=== PATIENT | female | born 1970 | race Caucasian/White ===

== ENCOUNTER 2019-05-06 19:35 | Inpatient (IN) ==
--- NOTE | 2019-05-06 19:44 | DR.GENAD ---
HPI Time Seen Time Seen by Provider: 05/06/19 19:44 HPI Comment HPI Comment: Patient is a 49-year-old female who presents to the ED with intergluteal abscess. She states that it started approximately on Monday of last week. She went to her PCP on Monday and was direct admitted to [facility]. But decided to come to call my ED for unknown reasons patient states that abscess is in between her right intergluteal area and is extremely painful. It is draining purulent drainage she has had subjective fevers. She also states that the pain is unbearable and that it is extremely hard to sit. She complains of multiple allergies including possible vancomycin to me. PMH PMH Past Medical History: Anxiety, Asthma, Diabetes, Hypertension and Hypothyroidism Past Surgical History: Yes Surgical History: Cholecystectomy Family History Family Medical History: [place] and Heart Failure Social History Do you use any recreational Drugs:: No infectious screening Isolation: Standard ROS Review of Systems Constitutional: Fever and Weakness Eyes: No Symptoms Reported ENTM: No Symptoms Reported Respiratoy: No Symptoms Reported Cardiovascular: No Symptoms Reported Gastrointestinal/Abdominal: No Symptoms Reported Genitourinary: Other (abscess in interguteal fold) Neurological: No Symptoms Reported Musculoskeletal: No Symptoms Reported and Other (buttock pain) Integumentary: Lumps Hematologic/Lymphatic: No Symptoms Reported Endocrine: No Symptoms Reported Psychiatric: No Symptoms Reported All Other Systems: Reviewed and Negative PE Vital Signs Vitals: Temperature 98.5 F Pulse Rate [Left Brachial] 66 Pulse Rate 100 Respiratory Rate 20 Blood Pressure [Right Arm] 134/79 Blood Pressure 130/81 O2 Sat by Pulse Oximetry 97 General Limitations: No Limitations General Appearance: Anxious and In Distress Head Head Exam: Normal Inspection, Atraumatic and Normocephalic Eyes Eye exam: Normal Appearance and EOMI ENT ENT Exam: Normal Exam and Normal Oropharynx Nose Exam: Normal Nose Exam and Sinus Tenderness Mouth Exam: Normal Inspection and Drooling Throat Exam: Normal Inspection Neck Neck Exam: Normal Inspection and Full ROM Respiratory Respiratory Exam: Normal Lung Sounds Bilat Respiratory Exam: Bilateral: Clear to Auscultation Cardiovascular Cardiovascular Exam: Regular Rate and Normal Rhythm Abdominal Exam Abdominal Exam: Normal Inspection, Normal Bowel Sounds and Soft Extremities Extremities Exam: Normal Inspection, Full ROM and Other (macular/papulae) Neurologic Neurological Exam: Alert, Oriented X3, CN II-XII Intact and Normal Gait Psychiatric Psychiatric Exam: Normal Affect and Normal Mood Skin Skin Exam: Other (large hand sized abscess with purulent foul smelling drainage and several opening. it is very induration.) MDM Additional Information Additional Information Obtained From: Old Records Differential Diagnosis Differential Diagnosis: abscess COURSE Treatment Treatment: Patient has intergluteal abscess that appears to need surgical input and drainage. Case was discussed with . He stated that he will does evaluate patient in the ED and that to keep the patient n.p.o.. Reevaluation 1st: Worsened (20:00 pt in pain ) 2nd: Improved (22:00 pt is states she feels a little better ) 3rd: Worsened (6:00 care plan discussed with patient) Consultation Called: :55 Call Returned: :55 Consultation Comments: Discussed care plan with Dr. Shepherd he advised he will assess pt in ED and to keep patient NPO. No further imaging needed. Education/Counseling Education/Counseling: Patient, Family, Education and Counseling Educated On: Treatment, Diagnosis, Prognosis and Needs for Follow Up ROR Labs Reviewed Laboratory Results Reviewed?: Yes Result Diagrams: 05/06/19 23:10 05/06/19 23:10 Laboratory: WBC 10.0 X10^3/uL (3.6-10.0) 05/06/19 23:10 RBC 4.43 X10^6/uL (3.5-5.4) 05/06/19 23:10 Hgb 11.7 g/dL (12.0-16.0) L 05/06/19 23:10 Hct 35.5 % (36.0-47.0) L 05/06/19 23:10 MCV 80.1 fL (80.0-100.0) 05/06/19 23:10 MCH 26.3 pg (27.0-34.0) L 05/06/19 23:10 MCHC 32.9 g/dL (33.0-35.0) L 05/06/19 23:10 RDW 15.6 % (11.6-16.5) 05/06/19 23:10 Plt Count 255 X10^3/uL (150.0-450.0) 05/06/19 23:10 MPV 8.3 fL (7.4-11.0) 05/06/19 23:10 Neut % (Auto) 73.4 % (42.0-75.0) 05/06/19 23:10 Lymph % (Auto) 15.4 % (21.0-51.0) L 05/06/19 23:10 [place] % (Auto) 8.1 % (0.0-13.0) 05/06/19 23:10 Eos % (Auto) 2.0 % (0.9-2.9) 05/06/19 23:10 Baso % (Auto) 1.1 % (0.2-1.0) H 05/06/19 23:10 Neut # (Auto) 7.4 x10^3/uL (2.2-4.8) H 05/06/19 23:10 Lymph # (Auto) 1.5 X10^3/uL (1.3-2.9) 05/06/19 23:10 [place] # (Auto) 0.8 x10^3/uL (0.3-0.8) 05/06/19 23:10 Eos # (Auto) 0.2 x10^3/uL (0.0-0.2) 05/06/19 23:10 Baso # (Auto) 0.1 X10^3/uL (0.0-0.1) 05/06/19 23:10 Absolute Nucleated RBC 0.1 /100WBC 05/06/19 23:10 Sodium 135 mmol/L (136-145) L 05/06/19 23:10 Corrected Sodium 138 mmol/L (136-145) 05/06/19 23:10 Potassium 4.2 mmol/L (3.5-5.1) 05/06/19 23:10 Chloride 100 mmol/L (98-107) 05/06/19 23:10 Carbon Dioxide 27.2 mmol/L (21-32) 05/06/19 23:10 BUN 11 mg/dL (7-18) 05/06/19 23:10 Creatinine 0.92 mg/dL (0.55-1.02) 05/06/19 23:10 Est GFR (MDRD) Af Amer > 60 (>60) 05/06/19 23:10 Est GFR (MDRD) Non-Af > 60 (>60) 05/06/19 23:10 Glucose 233 mg/dL (65-99) H 05/06/19 23:10 Calcium 8.8 mg/dL (8.5-10.1) 05/06/19 23:10 Corrected Calcium 9.9 mg/dL (8.5-10.1) 05/06/19 23:10 Total Bilirubin 0.30 mg/dL (0.2-1.0) 05/06/19 23:10 AST 27 Units/L (15-37) 05/06/19 23:10 ALT 17 Units/L (12-78) 05/06/19 23:10 Alkaline Phosphatase 143 Units/L (46-116) H 05/06/19 23:10 Total Protein 6.8 g/dL (6.4-8.2) 05/06/19 23:10 Albumin 2.6 g/dL (3.4-5.0) L 05/06/19 23:10 Globulin 4.2 g/dL (2.5-4.5) 05/06/19 23:10 Albumin/Globulin Ratio 0.6 Ratio (1.1-2.1) L 05/06/19 23:10 Opioid Opioid Risk Tool Total: 0 Total Score Risk Category: Low Risk Copyright: [employer] INGRAM predicting aberrant behaviors Diagnosis Discharge Problem: Abscess and cellulitis of gluteal region Narrative Support Text: Admitted to Dr. Shepherd for surgery and further evaluation.
[2019-05-06] MEDS ORDERED: CLEOCIN 600 MG IV PREMIX 600 MG/50 ML BAG IV ONE (22:58)
[2019-05-06] MEDS ORDERED: CLEOCIN VIAL 600 MG ONE (23:01)
[2019-05-06] MEDS ORDERED: NS 100 ML IV 100 ML IV ONE (23:02)
[2019-05-06 23:20] LABS: BASOPHILS # (AUTO) 0.1 X10^3/uL (0.0-0.1); BASOPHILS % (AUTO) 1.1 % (0.2-1.0); EOSINOPHILS # (AUTO) 0.2 x10^3/uL (0.0-0.2); HEMATOCRIT 35.5 % (36.0-47.0); HEMOGLOBIN 11.7 g/dL (12.0-16.0); LYMPHOCYTES # (AUTO) 1.5 X10^3/uL (1.3-2.9); LYMPHOCYTES % (AUTO) 15.4 % (21.0-51.0); MEAN CORPUSCULAR HEMOGLOBIN 26.3 pg (27.0-34.0); MEAN CORPUSCULAR HGB CONC 32.9 g/dL (33.0-35.0); MEAN CORPUSCULAR VOLUME 80.1 fL (80.0-100.0); MEAN PLATELET VOLUME 8.3 fL (7.4-11.0); MONOCYTES # (AUTO) 0.8 x10^3/uL (0.3-0.8); MONOCYTES % (AUTO) 8.1 % (0.0-13.0); NEUTROPHILS # (AUTO) 7.4 x10^3/uL (2.2-4.8); NEUTROPHILS % (AUTO) 73.4 % (42.0-75.0); PLATELET COUNT 255 X10^3/uL (150.0-450.0); RED BLOOD COUNT 4.43 X10^6/uL (3.5-5.4); RED CELL DISTRIBUTION WIDTH 15.6 % (11.6-16.5)
[2019-05-06 23:30] LABS: ALANINE AMINOTRANSFERASE 17 Units/L (12-78); ALBUMIN 2.6 g/dL (3.4-5.0); ALKALINE PHOSPHATASE 143 Units/L (46-116); ASPARTATE AMINO TRANSFERASE 27 Units/L (15-37); BLOOD UREA NITROGEN 11 mg/dL (7-18); CALCIUM 8.8 mg/dL (8.5-10.1); CARBON DIOXIDE 27.2 mmol/L (21-32); CHLORIDE 100 mmol/L (98-107); COR CA(FOR HYPOALB) 9.9 mg/dL (8.5-10.1); COR NA(FOR HYPERGLY) 138 mmol/L (136-145); CREATININE 0.92 mg/dL (0.55-1.02); SODIUM 135 mmol/L (136-145); TOTAL PROTEIN 6.8 g/dL (6.4-8.2); eGFR NON BLACK RACES > 60 (>60)
[2019-05-07] MEDS ORDERED: ZOFRAN INJ 4 MG VIAL IVP ONE (00:21)
[2019-05-07] MEDS ORDERED: DEMEROL INJ IVP ONE ×2 (00:21→02:05)
[2019-05-07] MEDS ORDERED: ZOFRAN INJ 4 MG VIAL ONE (00:23)
[2019-05-07] MEDS ORDERED: DEMEROL INJ ONE ×2 (00:23→02:03)
[2019-05-07] MEDS ORDERED: DIPRIVAN VIAL 20 ML ONE (07:28)
[2019-05-07] MEDS ORDERED: VERSED ONE (07:28)
[2019-05-07] MEDS ORDERED: KETALAR ONE (08:45)
[2019-05-07] MEDS ORDERED: DILAUDID INJ ONE (08:49)
[2019-05-07] MEDS ORDERED: NS 1000 ML 1,000 ML ONE (08:50)
[2019-05-07] MEDS ORDERED: XYLOCAINE 1 % (PLAIN) ONE (08:53)
[2019-05-07] MEDS ORDERED: NS 1/2 1000 ML IV 1,000 ML IV ONE (10:48)
[2019-05-07] MEDS: CLEOCIN 600 MG IV PREMIX 600 MG/50 ML BAG IV SCH ×3 (11:04→21:08)
[2019-05-07] MEDS: NS 1/2 1000 ML IV 1,000 ML IV SCH (11:04)
[2019-05-07] MEDS ORDERED: VOLTAREN 1 % GEL MULTI DOSE TUBE TOP SCH (13:15)
[2019-05-07] MEDS: MICRO K EXTEN CAP 10 MEQ PO SCH (14:35)
[2019-05-07] MEDS: SYNTHROID 150 mcg TAB PO SCH (14:35)
[2019-05-07] MEDS: CYMBALTA PO SCH (14:35)
[2019-05-07] MEDS: DEMADEX PO SCH (14:36)
[2019-05-07] MEDS: FOLIC ACID TAB 1 MG PO SCH (14:36)
[2019-05-07] MEDS: NEURONTIN CAP 400 MG PO SCH (14:36)
[2019-05-07 14:46] VITALS: BMI 47.4
[2019-05-07] MEDS: PATIENT'S HOME MEDICATION (Methocarbamol 500 MG) PO SCH ×2 (17:07→20:19)
[2019-05-07] MEDS ORDERED: VOLTAREN 1 % GEL MULTI DOSE TUBE TOP PRN (17:09)
[2019-05-07] MEDS: HumuLIN R SUBCUT PRN ×2 (17:33→21:00)
--- NOTE | 2019-05-07 18:55 | DR.H&P ---
H&P - History & Physical for Day of: H&P Date: 05/07/19 - Chief Complaint Chief Complaint: RIGHT INTRAGLUTEAL ABSCESS - History of Present Illness History of Present Illness: IS A 49 YEAR OLD WHITE FEMALE WHO PRESENTED TO THE ER WITH COMPLAINTS OF A LARGE, PAINFUL ABSCESS TO THE RIGHT INTERGLUETEAL AREA. THERE IS PURULENT DRAINAGE NOTED FROM SITE. PATIENT ALSO REPORTS FEVER. SYMPTOMS STARTED APPROXIMATELY A WEEK AND A HALF AGO. ON ARRIVAL, VITALS WERE 98.5-100-20-98%-130/81. LABS WERE OBTAINED. ABNORMAL LAB VALUES INCLUDE THE FOLLOWING: HGB 11.7, HCT 35.5, SODIUM 135, GLUCOSE 233, ALK PHOS 143. ALBUMIN 2.6. WOULD CULTURE COLLECTED. CONSULTED WITH PATIENT IN THE ER. CONSCIOUS SEDATION WAS PERFORMED AND WOUND WAS DEBRIDED AND DRAINED. WOUND WAS PACKED WITH IODIFORM. SHE WAS ADMITTED TO THE HOSPITAL FOR FURTHER T REATMENT WITH IV ANTIBIOTICS. WE STARTED CLINDAMYCIN 600MG IV Q6H, 1/2NS AT 100ML/HR, AND DEMEROL 12.5MG IV Q4H PRN. OTHERWISE, WE PLAN TO FOLLOW UP WITH AM LABS AND CONTINUE TO MONITOR. - Past Medical History Past Medical History: Hypertension, Diabetes, Anxiety, Hypothyroidism, Asthma - Past Surgical History Surgical History: Appendectomy, Cholecystectomy - Family History Family Medical History: Diabetes Mellitus, Cancer, [place], Coronary Artery Disease, Heart Failure, Sudden Cardiac , Hypertension - Social History Does any household member use tobacco: No Alcohol Use: None Drug Use: None - Medications Home Medications: diphenhydramine [From Benadryl] Allergy (Verified 05/06/19 20:01) epinephrine Allergy (Verified 05/06/19 20:01) methylprednisolone [From Depo-Medrol] Allergy (Verified 05/06/19 20:01) morphine Allergy (Verified 05/06/19 20:01) CONTINUE taking the following medications aspirin [Aspir-81] 81 mg PO DAILY 05/07/19 [History] bisoprolol fumarate 5 mg PO HS 05/07/19 [History] clindamycin HCl [Cleocin HCl] 300 mg PO TID 05/07/19 [History] diclofenac sodium [Voltaren] 2 % TOPICAL BID 05/07/19 [History] duloxetine [Cymbalta] 30 mg PO HS 05/07/19 [History] duloxetine [Cymbalta] 60 mg PO DAILY 05/07/19 [History] folic acid 1 mg PO DAILY 05/07/19 [History] gabapentin [Neurontin] 800 mg PO DAILY 05/07/19 [History] insulin glargine [Basaglar KwikPen U-100 Insulin] 80 unit SUBCUT DAILY 05/07/19 [History] insulin lispro [Admelog SoloStar U-100 Insulin] 5 - 10 unit SUBCUT DAILY PRN 05/07/19 [History] levothyroxine 150 mcg PO DAILY 05/07/19 [History] liraglutide [Victoza 3-Geraldo] 1.8 mg SUBCUT HS 05/07/19 [History] losartan [Cozaar] 25 mg PO DAILY 05/07/19 [History] methocarbamol 500 mg PO BID 05/07/19 [History] methotrexate sodium 12.5 mg PO WEEKLY 05/07/19 [History] mupirocin 1 applic TOPICAL DAILY 05/07/19 [History] oxycodone [Roxicodone] 5 mg PO Q4H PRN 05/07/19 [History] potassium chloride [Klor-Con 10] 10 meq PO DAILY 05/07/19 [History] torsemide 20 mg PO DAILY 05/07/19 [History] verapamil 40 mg PO BID 05/07/19 [History] - Review of Systems Constitutional: Fever Eyes: No Symptoms Reported ENT: No Symptoms Reported Respiratory: No Symptoms Reported Cardiovascular: No Symptoms Reported Gastrointestinal: No Symptoms Reported Genitourinary: No Symptoms Reported Musculoskeletal: No Symptoms Reported Skin: See HPI, Wound Neurological: No Symptoms Reported - Physical Exam Vital Signs: Temperature 97.9 F Pulse Rate [Left Brachial] 69 Pulse Rate 67 Respiratory Rate 18 Blood Pressure [Left Arm] 105/56 Blood Pressure [Right Arm] 92/49 Blood Pressure 99/58 O2 Sat by Pulse Oximetry 95 Oriented: Normal Eyes: Normal Ear: Normal Nose: Normal Throat: Normal Respiratory: Clear Throughout Cardiovascular: Normal : Normal Auscultation: Bowel Sounds: Normal Palpation: Normal Tenderness: Normal Skin: Wound (RIGHT INTRAGLUTEAL ABSCESS ) Musculoskeletal: Normal Psychiatric: Normal Mood Description: Calm Affect: Normal Speech Pattern: Clear, Appropriate - Assessment/Plan (1) Abscess and cellulitis of gluteal region Status: Acute Plan: STATUS POST I&D, WOULD CARE, IV CLINDAMYCIN, CONTINUE TO MONITOR - Allergies Allergies/Adverse Reactions: Allergies Allergy/AdvReac Type Severity Reaction Status Date / Time diphenhydramine Allergy Verified 05/06/19 20:01 [From Benadryl] epinephrine Allergy Verified 05/06/19 20:01 methylprednisolone Allergy Verified 05/06/19 20:01 [From Depo-Medrol] morphine Allergy Verified 05/06/19 20:01
[2019-05-07] MEDS ORDERED: NS 50 ML IV 50 ML IV ONE (19:50)
[2019-05-07] MEDS ORDERED: SNACK - Diabetic Appropriate PO SCH (20:00)
[2019-05-07] MEDS: COLACE CAP 100 MG PO SCH (20:16)
[2019-05-07] MEDS: MILK OF MAGNESIA PO SCH (20:35)
[2019-05-07] MEDS: ROXICODONE TAB 5 MG PO PRN (20:35)
[2019-05-07] MEDS: SNACK - Diabetic Appropriate PO SCH (20:36)
[2019-05-07] MEDS ORDERED: CYMBALTA PO SCH (21:00)
[2019-05-07] MEDS: VICTOZA SC SCH (21:08)
[2019-05-08] MEDS: DEMEROL INJ IVP PRN ×3 (00:10→11:51)
[2019-05-08] MEDS ORDERED: NS 1/2 1000 ML IV 1,000 ML IV ONE ×2 (00:33→12:10)
[2019-05-08] MEDS: NS 1/2 1000 ML IV 1,000 ML IV SCH ×6 (02:15→17:28)
[2019-05-08] MEDS ORDERED: NS 50 ML IV 50 ML IV ONE ×2 (04:42→08:25)
[2019-05-08] MEDS: CLEOCIN 600 MG IV PREMIX 600 MG/50 ML BAG IV SCH ×4 (04:55→22:07)
[2019-05-08 05:16] LABS: BASOPHILS # (AUTO) 0.1 X10^3/uL (0.0-0.1); BASOPHILS % (AUTO) 0.8 % (0.2-1.0); EOSINOPHILS # (AUTO) 0.2 x10^3/uL (0.0-0.2); EOSINOPHILS % (AUTO) 2.4 % (0.9-2.9); HEMOGLOBIN 12.3 g/dL (12.0-16.0); LYMPHOCYTES # (AUTO) 1.6 X10^3/uL (1.3-2.9); LYMPHOCYTES % (AUTO) 21.1 % (21.0-51.0); MEAN CORPUSCULAR HEMOGLOBIN 25.5 pg (27.0-34.0); MEAN CORPUSCULAR HGB CONC 31.5 g/dL (33.0-35.0); MEAN CORPUSCULAR VOLUME 81.2 fL (80.0-100.0); MONOCYTES # (AUTO) 0.6 x10^3/uL (0.3-0.8); MONOCYTES % (AUTO) 8.5 % (0.0-13.0); NEUTROPHILS # (AUTO) 5.1 x10^3/uL (2.2-4.8); NEUTROPHILS % (AUTO) 67.2 % (42.0-75.0); PLATELET COUNT 300 X10^3/uL (150.0-450.0); RED BLOOD COUNT 4.81 X10^6/uL (3.5-5.4); RED CELL DISTRIBUTION WIDTH 15.5 % (11.6-16.5); WHITE BLOOD COUNT 7.6 X10^3/uL (3.6-10.0)
[2019-05-08 05:25] LABS: ALANINE AMINOTRANSFERASE 18 Units/L (12-78); ALBUMIN 2.7 g/dL (3.4-5.0); ALKALINE PHOSPHATASE 154 Units/L (46-116); ASPARTATE AMINO TRANSFERASE 14 Units/L (15-37); BLOOD UREA NITROGEN 9 mg/dL (7-18); CALCIUM 8.8 mg/dL (8.5-10.1); CARBON DIOXIDE 29.8 mmol/L (21-32); CHLORIDE 99 mmol/L (98-107); COR CA(FOR HYPOALB) 9.8 mg/dL (8.5-10.1); COR NA(FOR HYPERGLY) 142 mmol/L (136-145); CREATININE 0.85 mg/dL (0.55-1.02); SODIUM 139 mmol/L (136-145); TOTAL PROTEIN 7.1 g/dL (6.4-8.2); eGFR NON BLACK RACES > 60 (>60)
[2019-05-08 05:57] LABS: PLATELET MORPHOLOGY COMMENT NORMAL (NORMAL)
[2019-05-08] MEDS: HumuLIN R SUBCUT PRN ×4 (06:26→21:00)
[2019-05-08] MEDS: SYNTHROID 150 mcg TAB PO SCH (09:06)
[2019-05-08] MEDS: NEURONTIN CAP 400 MG PO SCH ×2 (09:06→21:00)
[2019-05-08] MEDS: FOLIC ACID TAB 1 MG PO SCH (09:06)
[2019-05-08] MEDS: CYMBALTA PO SCH ×2 (09:06→21:30)
[2019-05-08] MEDS: MILK OF MAGNESIA PO SCH ×3 (09:07→22:08)
[2019-05-08] MEDS: PATIENT'S HOME MEDICATION (Methocarbamol 500 MG) PO SCH ×2 (09:07→21:00)
[2019-05-08] MEDS: MICRO K EXTEN CAP 10 MEQ PO SCH (09:08)
[2019-05-08] MEDS: DEMADEX PO SCH (09:08)
--- NOTE | 2019-05-08 11:24 | DR.PROGNOT ---
Hospital Progress Notes - Progress Note for Day of: Progress Note Date: 05/08/19 - Chief Complaint Chief Complaint: moderate drainage today . less pain . initial culture : gram + cocci and gm negative rods . BS is fairly controlled - Past Medical Family Social History Past Med/Fam/Surg Hx: No changes since H&P Allergies: Allergies diphenhydramine [From Benadryl] Allergy (Verified 05/06/19 20:01) epinephrine Allergy (Verified 05/06/19 20:01) methylprednisolone [From Depo-Medrol] Allergy (Verified 05/06/19 20:01) morphine Allergy (Verified 05/06/19 20:01) - Review Of Systems ROS: No change since H&P - Vital Signs Vital Signs: Temperature 98 F Pulse Rate [Left Brachial] 73 Pulse Rate 67 Respiratory Rate 20 Blood Pressure [Left Arm] 99/52 Blood Pressure [Right Arm] 92/49 Blood Pressure 99/58 O2 Sat by Pulse Oximetry 94 - Physical Exam Oriented: Normal Eyes: Normal Ear: Normal Nose: Normal Throat: Normal Cardiovascular: Normal : Normal GI:Auscultation: Normal GI:Palpation: Normal GI: Tenderness: Normal Skin: Wound (2x2x2 cm open wound Rt intergluteal area .with moderate surrounding cellulitis ) Musculoskeletal: Normal Psychiatric: Normal Mood Description: Calm Affect: Normal Speech Pattern: Clear, Appropriate - Laboratory and Diagnostics Result Diagrams: 05/08/19 04:55 05/08/19 04:55 Labs: 05/07/19 09:37 Buttock Gram Stain - Final 05/07/19 09:37 Buttock Wound Culture - Preliminary Laboratory WBC 7.6 X10^3/uL (3.6-10.0) 05/08/19 04:55 RBC 4.81 X10^6/uL (3.5-5.4) 05/08/19 04:55 Hgb 12.3 g/dL (12.0-16.0) 05/08/19 04:55 Hct 39.0 % (36.0-47.0) 05/08/19 04:55 MCV 81.2 fL (80.0-100.0) 05/08/19 04:55 MCH 25.5 pg (27.0-34.0) L 05/08/19 04:55 MCHC 31.5 g/dL (33.0-35.0) L 05/08/19 04:55 RDW 15.5 % (11.6-16.5) 05/08/19 04:55 Plt Count 300 X10^3/uL (150.0-450.0) 05/08/19 04:55 Plt Count Comment Adequate (ADEQUATE) 05/08/19 04:55 MPV 8.0 fL (7.4-11.0) 05/08/19 04:55 Neut % (Auto) 67.2 % (42.0-75.0) 05/08/19 04:55 Lymph % (Auto) 21.1 % (21.0-51.0) 05/08/19 04:55 [place] % (Auto) 8.5 % (0.0-13.0) 05/08/19 04:55 Eos % (Auto) 2.4 % (0.9-2.9) 05/08/19 04:55 Baso % (Auto) 0.8 % (0.2-1.0) 05/08/19 04:55 Neut # (Auto) 5.1 x10^3/uL (2.2-4.8) H 05/08/19 04:55 Lymph # (Auto) 1.6 X10^3/uL (1.3-2.9) 05/08/19 04:55 [place] # (Auto) 0.6 x10^3/uL (0.3-0.8) 05/08/19 04:55 Eos # (Auto) 0.2 x10^3/uL (0.0-0.2) 05/08/19 04:55 Baso # (Auto) 0.1 X10^3/uL (0.0-0.1) 05/08/19 04:55 Absolute Nucleated RBC 0.1 /100WBC 05/08/19 04:55 Plt Morphology Comment Normal (NORMAL) 05/08/19 04:55 RBC Morphology Normal (NORMAL) 05/08/19 04:55 Sodium 139 mmol/L (136-145) 05/08/19 04:55 Corrected Sodium 142 mmol/L (136-145) 05/08/19 04:55 Potassium 3.8 mmol/L (3.5-5.1) 05/08/19 04:55 Chloride 99 mmol/L (98-107) 05/08/19 04:55 Carbon Dioxide 29.8 mmol/L (21-32) 05/08/19 04:55 BUN 9 mg/dL (7-18) 05/08/19 04:55 Creatinine 0.85 mg/dL (0.55-1.02) 05/08/19 04:55 Est GFR (MDRD) Af Amer > 60 (>60) 05/08/19 04:55 Est GFR (MDRD) Non-Af > 60 (>60) 05/08/19 04:55 Glucose 221 mg/dL (65-99) H 05/08/19 04:55 POC Glucose (mg/dL) 193 mg/dL (65-99) H 05/08/19 11:15 Calcium 8.8 mg/dL (8.5-10.1) 05/08/19 04:55 Corrected Calcium 9.8 mg/dL (8.5-10.1) 05/08/19 04:55 Total Bilirubin 0.20 mg/dL (0.2-1.0) 05/08/19 04:55 AST 14 Units/L (15-37) L 05/08/19 04:55 ALT 18 Units/L (12-78) 05/08/19 04:55 Alkaline Phosphatase 154 Units/L (46-116) H 05/08/19 04:55 Total Protein 7.1 g/dL (6.4-8.2) 05/08/19 04:55 Albumin 2.7 g/dL (3.4-5.0) L 05/08/19 04:55 Globulin 4.4 g/dL (2.5-4.5) 05/08/19 04:55 Albumin/Globulin Ratio 0.6 Ratio (1.1-2.1) L 05/08/19 04:55 - Assessment and Plan 1: large Rt gluteal abscess with cellulitis . Diabetes Mellitus . obesity . same local care and IV ATB pending final culture . - Problem Patient Problems: Patient Problems Abscess and cellulitis of gluteal region (Acute) L02.31, L03.317
[2019-05-08] MEDS: LOVENOX INJ 40 MG SYR SC SCH (11:49)
[2019-05-08] MEDS: HYDROGEN PEROXIDE 3% EXT SCH (11:51)
[2019-05-08] MEDS: SNACK - Diabetic Appropriate PO SCH (20:00)
--- NOTE | 2019-05-08 20:57 | PCM.PROG ---
Progress Note - Progress Note for Day of Date of Exam: 05/08/19 - Subjective Subjective: IS DAY 1 STATUS POST I&D OF AN INTRAGLUTEAL ABSCESS. TODAY, SHE IS ALERT AND ORIENTED, LYING IN THE BED ON MORNING ROUNDS. SHE REPORTS MILD PAIN TODAY, BUT REPORTS SLIGHT IMPROVEMENT SINCE YESTERDAY. ON EXAMINATION, THERE IS MODERATE DRAINAGE FROM WOUND. THERE IS CELLULITIS SURROUN DING THE WOUND TO THE RIGHT INTERGLUTEAL AREA. HER VITALS THIS MORNING ARE: 98.0-73-20-94%-99/52. LABS WERE OBTAINED. ABNORMAL LAB VALUES INCLUDE THE FOLLOWING: GLUCOSE 221, AST 14, ALK PHOS 154, ALBUMIN 2.7. SHE IS CURRENTLY RECEIVING 1/2NS AT 100ML/HR, IV CELOCIN, AND HOME MEDICATIONS WERE RESUMED. WE WILL CONTINUE WITH CURRENT PLAN OF CARE TODAY. OTHERWISE, WE PLAN TO FOLLOW UP WITH AM LABS AND CONTINUE TO MONITOR. - Past Medical Family Social History Past Med/Fam/Surg Hx: No changes since H&P Allergies: Allergies diphenhydramine [From Benadryl] Allergy (Verified 05/06/19 20:01) epinephrine Allergy (Verified 05/06/19 20:01) methylprednisolone [From Depo-Medrol] Allergy (Verified 05/06/19 20:01) morphine Allergy (Verified 05/06/19 20:01) - Review of Systems ROS: No change since H&P - Vital Signs and I&O's Vital Signs: Temperature 97.9 F Pulse Rate [Left Brachial] 69 Pulse Rate 67 Respiratory Rate 20 Blood Pressure [Left Arm] 102/61 Blood Pressure [Right Arm] 92/49 Blood Pressure 99/58 O2 Sat by Pulse Oximetry 95 Intake and Output: Intake & Output 05/06/19 05/07/19 05/08/19 05/09/19 11:59 11:59 11:59 11:59 Intake Total 2960 / 2960 1450 / 1450 Balance 2960 / 2960 1450 / 1450 - Physical Exam Oriented: Normal Eyes: Normal Ear: Normal Nose: Normal Throat: Normal Respiratory: Diminished Cardiovascular: Normal : Normal Auscultation: Bowel Sounds: Normal Palpation: Normal Tenderness: Normal Skin: Wound (2x2x2 cm open wound Rt intergluteal area .with moderate surrounding cellulitis ) Musculoskeletal: Normal Psychiatric: Normal Mood Description: Calm Affect: Normal Speech Pattern: Clear, Appropriate - Laboratory and Diagnostics Result Diagrams: 05/08/19 04:55 05/08/19 04:55 Labs: 05/07/19 09:37 Buttock Gram Stain - Final 05/07/19 09:37 Buttock Wound Culture - Preliminary Laboratory WBC 7.6 X10^3/uL (3.6-10.0) 05/08/19 04:55 RBC 4.81 X10^6/uL (3.5-5.4) 05/08/19 04:55 Hgb 12.3 g/dL (12.0-16.0) 05/08/19 04:55 Hct 39.0 % (36.0-47.0) 05/08/19 04:55 MCV 81.2 fL (80.0-100.0) 05/08/19 04:55 MCH 25.5 pg (27.0-34.0) L 05/08/19 04:55 MCHC 31.5 g/dL (33.0-35.0) L 05/08/19 04:55 RDW 15.5 % (11.6-16.5) 05/08/19 04:55 Plt Count 300 X10^3/uL (150.0-450.0) 05/08/19 04:55 Plt Count Comment Adequate (ADEQUATE) 05/08/19 04:55 MPV 8.0 fL (7.4-11.0) 05/08/19 04:55 Neut % (Auto) 67.2 % (42.0-75.0) 05/08/19 04:55 Lymph % (Auto) 21.1 % (21.0-51.0) 05/08/19 04:55 [place] % (Auto) 8.5 % (0.0-13.0) 05/08/19 04:55 Eos % (Auto) 2.4 % (0.9-2.9) 05/08/19 04:55 Baso % (Auto) 0.8 % (0.2-1.0) 05/08/19 04:55 Neut # (Auto) 5.1 x10^3/uL (2.2-4.8) H 05/08/19 04:55 Lymph # (Auto) 1.6 X10^3/uL (1.3-2.9) 05/08/19 04:55 [place] # (Auto) 0.6 x10^3/uL (0.3-0.8) 05/08/19 04:55 Eos # (Auto) 0.2 x10^3/uL (0.0-0.2) 05/08/19 04:55 Baso # (Auto) 0.1 X10^3/uL (0.0-0.1) 05/08/19 04:55 Absolute Nucleated RBC 0.1 /100WBC 05/08/19 04:55 Plt Morphology Comment Normal (NORMAL) 05/08/19 04:55 RBC Morphology Normal (NORMAL) 05/08/19 04:55 Sodium 139 mmol/L (136-145) 05/08/19 04:55 Corrected Sodium 142 mmol/L (136-145) 05/08/19 04:55 Potassium 3.8 mmol/L (3.5-5.1) 05/08/19 04:55 Chloride 99 mmol/L (98-107) 05/08/19 04:55 Carbon Dioxide 29.8 mmol/L (21-32) 05/08/19 04:55 BUN 9 mg/dL (7-18) 05/08/19 04:55 Creatinine 0.85 mg/dL (0.55-1.02) 05/08/19 04:55 Est GFR (MDRD) Af Amer > 60 (>60) 05/08/19 04:55 Est GFR (MDRD) Non-Af > 60 (>60) 05/08/19 04:55 Glucose 221 mg/dL (65-99) H 05/08/19 04:55 POC Glucose (mg/dL) 279 mg/dL (65-99) H 05/08/19 20:12 Calcium 8.8 mg/dL (8.5-10.1) 05/08/19 04:55 Corrected Calcium 9.8 mg/dL (8.5-10.1) 05/08/19 04:55 Total Bilirubin 0.20 mg/dL (0.2-1.0) 05/08/19 04:55 AST 14 Units/L (15-37) L 05/08/19 04:55 ALT 18 Units/L (12-78) 05/08/19 04:55 Alkaline Phosphatase 154 Units/L (46-116) H 05/08/19 04:55 Total Protein 7.1 g/dL (6.4-8.2) 05/08/19 04:55 Albumin 2.7 g/dL (3.4-5.0) L 05/08/19 04:55 Globulin 4.4 g/dL (2.5-4.5) 05/08/19 04:55 Albumin/Globulin Ratio 0.6 Ratio (1.1-2.1) L 05/08/19 04:55 - Plan (1) Abscess and cellulitis of gluteal region Status: Acute Plan: STATUS POST I&D, WOULD CARE, IV CLINDAMYCIN, CONTINUE TO MONITOR
[2019-05-08] MEDS: COLACE CAP 100 MG PO SCH (21:00)
[2019-05-08] MEDS: VICTOZA SC SCH (21:00)
[2019-05-09] MEDS ORDERED: NS 1/2 1000 ML IV 1,000 ML IV ONE ×2 (00:41→11:03)
[2019-05-09] MEDS: NS 1/2 1000 ML IV 1,000 ML IV SCH ×3 (00:42→11:04)
[2019-05-09] MEDS: DEMEROL INJ IVP PRN ×4 (04:55→22:00)
[2019-05-09] MEDS: CLEOCIN 600 MG IV PREMIX 600 MG/50 ML BAG IV SCH ×4 (05:00→22:00)
[2019-05-09 05:22] LABS: BASOPHILS % (AUTO) 0.5 % (0.2-1.0); EOSINOPHILS # (AUTO) 0.2 x10^3/uL (0.0-0.2); EOSINOPHILS % (AUTO) 2.5 % (0.9-2.9); HEMATOCRIT 38.7 % (36.0-47.0); HEMOGLOBIN 12.6 g/dL (12.0-16.0); LYMPHOCYTES # (AUTO) 1.7 X10^3/uL (1.3-2.9); LYMPHOCYTES % (AUTO) 21.9 % (21.0-51.0); MEAN CORPUSCULAR HGB CONC 32.5 g/dL (33.0-35.0); MEAN CORPUSCULAR VOLUME 80.1 fL (80.0-100.0); MEAN PLATELET VOLUME 7.6 fL (7.4-11.0); MONOCYTES # (AUTO) 0.6 x10^3/uL (0.3-0.8); MONOCYTES % (AUTO) 8.1 % (0.0-13.0); NEUTROPHILS # (AUTO) 5.2 x10^3/uL (2.2-4.8); PLATELET COUNT 299 X10^3/uL (150.0-450.0); RED BLOOD COUNT 4.83 X10^6/uL (3.5-5.4); RED CELL DISTRIBUTION WIDTH 15.4 % (11.6-16.5); WHITE BLOOD COUNT 7.7 X10^3/uL (3.6-10.0)
[2019-05-09 05:34] LABS: ALANINE AMINOTRANSFERASE 15 Units/L (12-78); ALBUMIN 2.8 g/dL (3.4-5.0); ALKALINE PHOSPHATASE 149 Units/L (46-116); ASPARTATE AMINO TRANSFERASE 10 Units/L (15-37); BLOOD UREA NITROGEN 7 mg/dL (7-18); CALCIUM 8.9 mg/dL (8.5-10.1); CHLORIDE 102 mmol/L (98-107); COR CA(FOR HYPOALB) 9.9 mg/dL (8.5-10.1); COR NA(FOR HYPERGLY) 141 mmol/L (136-145); SODIUM 139 mmol/L (136-145); TOTAL PROTEIN 7.2 g/dL (6.4-8.2); eGFR NON BLACK RACES > 60 (>60)
[2019-05-09] MEDS ORDERED: NITROSTAT SL PRN (07:34)
[2019-05-09] MEDS ORDERED: NITROSTAT ONE ×2 (07:36→07:37)
[2019-05-09] MEDS: LOVENOX INJ 40 MG SYR SC SCH (08:16)
[2019-05-09 08:17] LABS: CKMB % 3.7 % (<4); CREATINE KINASE 27 Units/L (26-192); CREATINE KINASE MB < 1.0 ng/mL (0-4.0); TROPONIN I < 0.02 ng/mL (0-1.5)
[2019-05-09] MEDS: MICRO K EXTEN CAP 10 MEQ PO SCH (08:17)
[2019-05-09] MEDS: NEURONTIN CAP 400 MG PO SCH ×2 (08:18→21:00)
[2019-05-09] MEDS: DEMADEX PO SCH (08:18)
[2019-05-09] MEDS: FOLIC ACID TAB 1 MG PO SCH (08:19)
[2019-05-09] MEDS: PATIENT'S HOME MEDICATION (Methocarbamol 500 MG) PO SCH ×2 (08:19→21:11)
[2019-05-09] MEDS: CYMBALTA PO SCH ×2 (08:19→21:00)
[2019-05-09] MEDS: SYNTHROID 150 mcg TAB PO SCH (08:19)
[2019-05-09] MEDS: HYDROGEN PEROXIDE 3% EXT SCH (08:20)
[2019-05-09] MEDS: MILK OF MAGNESIA PO SCH (08:29)
--- NOTE | 2019-05-09 10:09 | RAD ---
History: Intergluteal abscess Study: Portable AP chest Comparison: January 24, 2013 Findings: The lungs are clear and the heart and mediastinum are unremarkable. There is no edema or effusion or congestion. Impression: No evidence for active cardiopulmonary disease Reported By:
[2019-05-09] MEDS: PROTONIX INJ 40 MG VIAL IVP SCH (10:56)
--- NOTE | 2019-05-09 12:10 | DR.PROGNOT ---
Hospital Progress Notes - Progress Note for Day of: Progress Note Date: 05/09/19 - Chief Complaint Chief Complaint: still having moderate drainage from gluteal abscess .. less pain . initial culture : gram + cocci.( Streptococcus) and gm negative rods . BS is still high . drassing was changed , wound irrigated and repacked . - Past Medical Family Social History Past Med/Fam/Surg Hx: No changes since H&P Allergies: Allergies diphenhydramine [From Benadryl] Allergy (Verified 05/06/19 20:01) epinephrine Allergy (Verified 05/06/19 20:) methylprednisolone [From Depo-Medrol] Allergy (Verified 05/06/19 20:) morphine Allergy (Verified 05/06/19 20:) - Review Of Systems ROS: No change since H&P - Vital Signs Vital Signs: Temperature 97.8 F Pulse Rate [Left Brachial] 76 Pulse Rate 67 Respiratory Rate 15 Blood Pressure [Left Arm] 142/84 Blood Pressure [Right Arm] 92/49 Blood Pressure 99/58 O2 Sat by Pulse Oximetry 96 - Physical Exam Oriented: Normal Eyes: Normal Ear: Normal Nose: Normal Throat: Normal Respiratory: Diminished Cardiovascular: Normal : Normal GI:Auscultation: Normal GI:Palpation: Normal GI: Tenderness: Normal Skin: Wound (2x2x2 cm open wound Rt intergluteal area .with moderate surrounding cellulitis ) Musculoskeletal: Normal Psychiatric: Normal Mood Description: Calm Affect: Normal Speech Pattern: Clear, Appropriate - Laboratory and Diagnostics Result Diagrams: 05/09/19 04:46 05/09/19 04:46 Labs: 05/07/19 09:37 Buttock Gram Stain - Final 05/07/19 09:37 Buttock Wound Culture - Preliminary Laboratory WBC 7.7 X10^3/uL (3.6-10.0) 05/09/19 04:46 RBC 4.83 X10^6/uL (3.5-5.4) 05/09/19 04:46 Hgb 12.6 g/dL (12.0-16.0) 05/09/19 04:46 Hct 38.7 % (36.0-47.0) 05/09/19 04:46 MCV 80.1 fL (80.0-100.0) 05/09/19 04:46 MCH 26.0 pg (27.0-34.0) L 05/09/19 04:46 MCHC 32.5 g/dL (33.0-35.0) L 05/09/19 04:46 RDW 15.4 % (11.6-16.5) 05/09/19 04:46 Plt Count 299 X10^3/uL (150.0-450.0) 05/09/19 04:46 Plt Count Comment Adequate (ADEQUATE) 05/08/19 04:55 MPV 7.6 fL (7.4-11.0) 05/09/19 04:46 Neut % (Auto) 67.0 % (42.0-75.0) 05/09/19 04:46 Lymph % (Auto) 21.9 % (21.0-51.0) 05/09/19 04:46 [place] % (Auto) 8.1 % (0.0-13.0) 05/09/19 04:46 Eos % (Auto) 2.5 % (0.9-2.9) 05/09/19 04:46 Baso % (Auto) 0.5 % (0.2-1.0) 05/09/19 04:46 Neut # (Auto) 5.2 x10^3/uL (2.2-4.8) H 05/09/19 04:46 Lymph # (Auto) 1.7 X10^3/uL (1.3-2.9) 05/09/19 04:46 [place] # (Auto) 0.6 x10^3/uL (0.3-0.8) 05/09/19 04:46 Eos # (Auto) 0.2 x10^3/uL (0.0-0.2) 05/09/19 04:46 Baso # (Auto) 0.0 X10^3/uL (0.0-0.1) 05/09/19 04:46 Absolute Nucleated RBC 0.1 /100WBC 05/09/19 04:46 Plt Morphology Comment Normal (NORMAL) 05/08/19 04:55 RBC Morphology Normal (NORMAL) 05/08/19 04:55 Sodium 139 mmol/L (136-145) 05/09/19 04:46 Corrected Sodium 141 mmol/L (136-145) 05/09/19 04:46 Potassium 3.5 mmol/L (3.5-5.1) 05/09/19 04:46 Chloride 102 mmol/L (98-107) 05/09/19 04:46 Carbon Dioxide 28.0 mmol/L (21-32) 05/09/19 04:46 BUN 7 mg/dL (7-18) 05/09/19 04:46 Creatinine 0.70 mg/dL (0.55-1.02) 05/09/19 04:46 Est GFR (MDRD) Af Amer > 60 (>60) 05/09/19 04:46 Est GFR (MDRD) Non-Af > 60 (>60) 05/09/19 04:46 Glucose 171 mg/dL (65-99) H 05/09/19 04:46 POC Glucose (mg/dL) 252 mg/dL (65-99) H 05/09/19 11:34 Calcium 8.9 mg/dL (8.5-10.1) 05/09/19 04:46 Corrected Calcium 9.9 mg/dL (8.5-10.1) 05/09/19 04:46 Total Bilirubin 0.20 mg/dL (0.2-1.0) 05/09/19 04:46 AST 10 Units/L (15-37) L 05/09/19 04:46 ALT 15 Units/L (12-78) 05/09/19 04:46 Alkaline Phosphatase 149 Units/L (46-116) H 05/09/19 04:46 Creatine Kinase 27 Units/L (26-192) 05/09/19 07:45 CK-MB (CK-2) < 1.0 ng/mL (0-4.0) 05/09/19 07:45 CK/CKMB % Calc 3.7 % (<4) 05/09/19 07:45 Troponin I < 0.02 ng/mL (0-1.5) 05/09/19 07:45 Total Protein 7.2 g/dL (6.4-8.2) 05/09/19 04:46 Albumin 2.8 g/dL (3.4-5.0) L 05/09/19 04:46 Globulin 4.4 g/dL (2.5-4.5) 05/09/19 04:46 Albumin/Globulin Ratio 0.6 Ratio (1.1-2.1) L 05/09/19 04:46 - Assessment and Plan 1: large Rt gluteal abscess with cellulitis . Diabetes Mellitus . obesity . same local care and IV ATB pending final culture . added Ancef today .( Streptococcus ) - Problem Patient Problems: Patient Problems Abscess and cellulitis of gluteal region (Acute) L02.31, L03.317
[2019-05-09] MEDS: ANCEF VIAL 1 GRAM IVP SCH ×3 (12:22→22:00)
[2019-05-09] MEDS: HumuLIN R SUBCUT PRN ×4 (12:23→22:00)
[2019-05-09] MEDS: ROXICODONE TAB 5 MG PO PRN (19:05)
[2019-05-09] MEDS: SNACK - Diabetic Appropriate PO SCH (20:00)
[2019-05-09] MEDS ORDERED: NS 50 ML IV 50 ML IV ONE (20:23)
[2019-05-09] MEDS: VICTOZA SC SCH (21:00)
[2019-05-09] MEDS: COLACE CAP 100 MG PO SCH (21:00)
[2019-05-10] MEDS ORDERED: NS 1/2 1000 ML IV 1,000 ML IV ONE (01:38)
[2019-05-10] MEDS: NS 1/2 1000 ML IV 1,000 ML IV SCH ×3 (01:40→11:58)
[2019-05-10] MEDS: CLEOCIN 600 MG IV PREMIX 600 MG/50 ML BAG IV SCH ×2 (03:00→10:28)
[2019-05-10] MEDS: ANCEF VIAL 1 GRAM IVP SCH (05:21)
[2019-05-10 05:26] LABS: BASOPHILS % (AUTO) 0.5 % (0.2-1.0); EOSINOPHILS # (AUTO) 0.2 x10^3/uL (0.0-0.2); EOSINOPHILS % (AUTO) 2.4 % (0.9-2.9); HEMATOCRIT 37.1 % (36.0-47.0); LYMPHOCYTES # (AUTO) 1.2 X10^3/uL (1.3-2.9); MEAN CORPUSCULAR HEMOGLOBIN 25.8 pg (27.0-34.0); MEAN CORPUSCULAR HGB CONC 32.2 g/dL (33.0-35.0); MEAN CORPUSCULAR VOLUME 80.1 fL (80.0-100.0); MEAN PLATELET VOLUME 7.6 fL (7.4-11.0); MONOCYTES # (AUTO) 0.5 x10^3/uL (0.3-0.8); MONOCYTES % (AUTO) 8.5 % (0.0-13.0); NEUTROPHILS # (AUTO) 4.4 x10^3/uL (2.2-4.8); NEUTROPHILS % (AUTO) 69.6 % (42.0-75.0); PLATELET COUNT 254 X10^3/uL (150.0-450.0); RED BLOOD COUNT 4.63 X10^6/uL (3.5-5.4); RED CELL DISTRIBUTION WIDTH 15.4 % (11.6-16.5); WHITE BLOOD COUNT 6.3 X10^3/uL (3.6-10.0)
[2019-05-10 05:36] LABS: PLATELET MORPHOLOGY COMMENT NORMAL (NORMAL)
[2019-05-10 05:38] LABS: HYPOCHROMASIA SLIGHT
[2019-05-10 05:45] LABS: ALANINE AMINOTRANSFERASE 13 Units/L (12-78); ALBUMIN 2.5 g/dL (3.4-5.0); ALKALINE PHOSPHATASE 124 Units/L (46-116); ASPARTATE AMINO TRANSFERASE 13 Units/L (15-37); BLOOD UREA NITROGEN 6 mg/dL (7-18); CALCIUM 8.6 mg/dL (8.5-10.1); CARBON DIOXIDE 27.9 mmol/L (21-32); CHLORIDE 104 mmol/L (98-107); COR CA(FOR HYPOALB) 9.8 mg/dL (8.5-10.1); COR NA(FOR HYPERGLY) 142 mmol/L (136-145); CREATININE 0.68 mg/dL (0.55-1.02); SODIUM 140 mmol/L (136-145); TOTAL PROTEIN 6.5 g/dL (6.4-8.2); eGFR NON BLACK RACES > 60 (>60)
[2019-05-10] MEDS: HumuLIN R SUBCUT PRN ×2 (06:01→11:16)
[2019-05-10] MEDS ORDERED: K-DUR TAB 20 MEQ PO PRN (07:12)
[2019-05-10] MEDS ORDERED: POTASSIUM CHL 60 MEQ/NS 0.45% 500 ML IV PRN (07:12)
[2019-05-10] MEDS ORDERED: POTASSIUM CHLORIDE LIQ 20 MEQ UDC PO PRN (07:12)
[2019-05-10] MEDS ORDERED: KLOR-CON PO PRN (07:12)
[2019-05-10] MEDS ORDERED: MICRO K EXTEN CAP 10 MEQ PO PRN (07:12)
[2019-05-10] MEDS ORDERED: K-RIDER 10 MEQ/NS 100 ML 10 MEQ/100 ML BAG IV PRN (07:12)
[2019-05-10] MEDS ORDERED: POTASSIUM CHL 40 MEQ/NS 0.45% 500 ML IV PRN (07:12)
[2019-05-10] MEDS: FOLIC ACID TAB 1 MG PO SCH (08:13)
[2019-05-10] MEDS: MICRO K EXTEN CAP 10 MEQ PO SCH (08:14)
[2019-05-10] MEDS: DEMADEX PO SCH (08:15)
[2019-05-10] MEDS: DEMEROL INJ IVP PRN (08:15)
[2019-05-10] MEDS: LOVENOX INJ 40 MG SYR SC SCH (08:15)
[2019-05-10] MEDS: CYMBALTA PO SCH (08:16)
[2019-05-10] MEDS: PROTONIX INJ 40 MG VIAL IVP SCH (08:16)
[2019-05-10] MEDS: SYNTHROID 150 mcg TAB PO SCH (08:16)
[2019-05-10] MEDS: PATIENT'S HOME MEDICATION (Methocarbamol 500 MG) PO SCH (08:19)
[2019-05-10] MEDS: HYDROGEN PEROXIDE 3% EXT SCH (08:20)
[2019-05-10] MEDS: NEURONTIN CAP 400 MG PO SCH (08:25)
--- NOTE | 2019-05-10 13:29 | DR.PROGNOT ---
Hospital Progress Notes - Progress Note for Day of: Progress Note Date: 05/10/19 - Chief Complaint Chief Complaint: still having moderate drainage from gluteal abscess .. less pain . culture is streptococcus sensitive to Clindamycin. drassing was changed , wound irrigated and repacked . - Past Medical Family Social History Past Med/Fam/Surg Hx: No changes since H&P Allergies: Allergies diphenhydramine [From Benadryl] Allergy (Verified 05/06/19 20:01) epinephrine Allergy (Verified 05/06/19 20:) methylprednisolone [From Depo-Medrol] Allergy (Verified 05/06/19 20:) morphine Allergy (Verified 05/06/19 20:) - Review Of Systems ROS: No change since H&P - Vital Signs Vital Signs: Temperature 98.9 F Pulse Rate [Right Brachial] 79 Pulse Rate [Left Brachial] 83 Pulse Rate 67 Respiratory Rate 15 Blood Pressure [Left Arm] 142/94 Blood Pressure [Right Arm] 136/78 Blood Pressure 99/58 O2 Sat by Pulse Oximetry 99 - Physical Exam Oriented: Normal Eyes: Normal Ear: Normal Nose: Normal Throat: Normal Respiratory: Diminished Cardiovascular: Normal : Normal GI:Auscultation: Normal GI:Palpation: Normal GI: Tenderness: Normal Skin: Wound (2x2x2 cm open wound Rt intergluteal area .with moderate surrounding cellulitis ) Musculoskeletal: Normal Psychiatric: Normal Mood Description: Calm Affect: Normal Speech Pattern: Clear, Appropriate - Laboratory and Diagnostics Result Diagrams: 05/10/19 05:00 05/10/19 05:00 Labs: 05/07/19 09:37 Buttock Gram Stain - Final 05/07/19 09:37 Buttock Wound Culture - Final Streptococcus Anginosus Laboratory WBC 6.3 X10^3/uL (3.6-10.0) 05/10/19 05:00 RBC 4.63 X10^6/uL (3.5-5.4) 05/10/19 05:00 Hgb 12.0 g/dL (12.0-16.0) 05/10/19 05:00 Hct 37.1 % (36.0-47.0) 05/10/19 05:00 MCV 80.1 fL (80.0-100.0) 05/10/19 05:00 MCH 25.8 pg (27.0-34.0) L 05/10/19 05:00 MCHC 32.2 g/dL (33.0-35.0) L 05/10/19 05:00 RDW 15.4 % (11.6-16.5) 05/10/19 05:00 Plt Count 254 X10^3/uL (150.0-450.0) 05/10/19 05:00 Plt Count Comment Adequate (ADEQUATE) 05/10/19 05:00 MPV 7.6 fL (7.4-11.0) 05/10/19 05:00 Neut % (Auto) 69.6 % (42.0-75.0) 05/10/19 05:00 Lymph % (Auto) 19.0 % (21.0-51.0) L 05/10/19 05:00 Ware % (Auto) 8.5 % (0.0-13.0) 05/10/19 05:00 Eos % (Auto) 2.4 % (0.9-2.9) 05/10/19 05:00 Baso % (Auto) 0.5 % (0.2-1.0) 05/10/19 05:00 Neut # (Auto) 4.4 x10^3/uL (2.2-4.8) 05/10/19 05:00 Lymph # (Auto) 1.2 X10^3/uL (1.3-2.9) L 05/10/19 05:00 Ware # (Auto) 0.5 x10^3/uL (0.3-0.8) 05/10/19 05:00 Eos # (Auto) 0.2 x10^3/uL (0.0-0.2) 05/10/19 05:00 Baso # (Auto) 0.0 X10^3/uL (0.0-0.1) 05/10/19 05:00 Absolute Nucleated RBC 0.0 /100WBC 05/10/19 05:00 Plt Morphology Comment Normal (NORMAL) 05/10/19 05:00 RBC Morphology Abnormal (NORMAL) A 05/10/19 05:00 Hypochromasia Slight A 05/10/19 05:00 Sodium 140 mmol/L (136-145) 05/10/19 05:00 Corrected Sodium 142 mmol/L (136-145) 05/10/19 05:00 Potassium 3.5 mmol/L (3.5-5.1) 05/10/19 05:00 Chloride 104 mmol/L (98-107) 05/10/19 05:00 Carbon Dioxide 27.9 mmol/L (21-32) 05/10/19 05:00 BUN 6 mg/dL (7-18) L 05/10/19 05:00 Creatinine 0.68 mg/dL (0.55-1.02) 05/10/19 05:00 Est GFR (MDRD) Af Amer > 60 (>60) 05/10/19 05:00 Est GFR (MDRD) Non-Af > 60 (>60) 05/10/19 05:00 Glucose 196 mg/dL (65-99) H 05/10/19 05:00 POC Glucose (mg/dL) 246 mg/dL (65-99) H 05/10/19 10:47 Calcium 8.6 mg/dL (8.5-10.1) 05/10/19 05:00 Corrected Calcium 9.8 mg/dL (8.5-10.1) 05/10/19 05:00 Magnesium 2.1 mg/dL (1.7-2.9) 05/10/19 05:00 Total Bilirubin 0.20 mg/dL (0.2-1.0) 05/10/19 05:00 AST 13 Units/L (15-37) L 05/10/19 05:00 ALT 13 Units/L (12-78) 05/10/19 05:00 Alkaline Phosphatase 124 Units/L (46-116) H 05/10/19 05:00 Creatine Kinase 27 Units/L (26-192) 05/09/19 07:45 CK-MB (CK-2) < 1.0 ng/mL (0-4.0) 05/09/19 07:45 CK/CKMB % Calc 3.7 % (<4) 05/09/19 07:45 Troponin I < 0.02 ng/mL (0-1.5) 05/09/19 07:45 Total Protein 6.5 g/dL (6.4-8.2) 05/10/19 05:00 Albumin 2.5 g/dL (3.4-5.0) L 05/10/19 05:00 Globulin 4.0 g/dL (2.5-4.5) 05/10/19 05:00 Albumin/Globulin Ratio 0.6 Ratio (1.1-2.1) L 05/10/19 05:00 - Assessment and Plan 1: large Rt gluteal abscess with cellulitis . Diabetes Mellitus . obesity . same local care and IV ATB . to d/c in AM on oral Clindamycin . - Problem Patient Problems: Patient Problems Abscess and cellulitis of gluteal region (Acute) L02.31, L03.317
[2019-05-10 13:52] VITALS: BP 135/79
== END 2019-05-10 13:50 | disposition home or self-care (01) | DRG 572 ==
LOC: ER 19:36 → MED/SURG 05-07 08:02
PROVIDERS: ADMIT Internal Medicine; ATTEND Internal Medicine
DX: L02.31 Cutaneous abscess of buttock; E03.8 Other specified hypothyroidism; F41.8 Other specified anxiety disorders; I10 Essential (primary) hypertension; E11.65 Type 2 diabetes mellitus with hyperglycemia; B95.1 Streptococcus, group B, as the cause of diseases classified elsewhere; L03.317 Cellulitis of buttock; R07.89 Other chest pain
CPT/HCPCS: 36415; 71010; 71045; 80053; 82550; 82553; 83735; 84484; 85025; 87070; 87075; 87077; 87186; 87205; 93005; 96365; 96374; 96375; 99284; A4222; C9113; J0690; J1170; J1650; J1815; J2175; J2250; J2405; J2704; J3490; J7030; J7050; S0077